=== PATIENT | male | born 1950 | race Caucasian/White ===

== ENCOUNTER 2016-11-22 04:01 | Inpatient (IN) | payer OTHER ==
[2016-11-22] VITALS (9 sets, daily range): BP systolic 118–148; BP diastolic 70–76
[~2016-11-22] VITALS: Ht 170.2 cm; Wt 82.6 kg
[~2016-11-22 04:01] MED LIST: AMLODIPINE BESYL5 M1 PO; CELEBREX200 M1 PO; CYCLOBENZAPRINE5 M2 PO; DORZOLAMIDE HCL10 M1 OPH; FENOFIBRATE145 M1 PO; GABAPENTIN300 M2 PO; LANTUS SOL100 UNIT/1 SC; LISINOPRIL-HCT1 EAC1 PO; LUMIGAN2.5 ML OPH; PRAVACHOL40 M1 PO; VICTOZA 2-0.6 MG/0.1 SC
--- NOTE | 2016-11-22 12:06 | Operative Report ---
Operative/Inv Procedure Report Surgery Date: 11/22/16 Name of Procedure: C6 C7 T1 laminectomy for excision of synovial cyst. C6-C7 T1 T2 T3 posterior lateral arthrodesis utilizing autologous bone graft and the [place] segmental titanium instrumentation. Pre-Operative Diagnosis: Cervical stenosis synovial cysts Post-Operative Diagnosis: Same Estimated Blood Loss: 250cc Surgeon/Automotive Product Specialist: MICHEAL MARI MD AND MIRIAN PACHECO MD Anesthesia: general endotracheal tube Operative/Procedure Note Note: The patient was brought to the operating room. After undergoing endotracheal intubation Monterroso catheterization Venodyne's were placed for both lower extremities. A triple pin Duckworth headrest was placed over the patient's head and the patient was then placed in the prone position on gel rolls arms and the side all bony prominences well-padded. The back of the neck was shaved washed with alcohol and Betadine and draped again with DuraPrep solution. X-ray was used for localization. An incision was made between the C5 and T3 vertebral bodies developed down through the underlying subcutaneous teeniest tissues the paraspinal muscles mobilized out laterally to the level of the lateral facet joints. After confirming with x-ray using a Ultromex's bone scalpel at the C6-C7 and T1 lamina were now removed by making 2 troughs on either side of the lamina and removed them with no undue downward pressure upon the spinal canal. The bone was removed morcellized and later used in the arthrodesis. At the O arm stereotaxis was now made but could not be accomplished due to the body habitus of the patient in the position. A lateral screws were now placed at C6 and C7 utilizing pascual titanium screws 45 superior 45 lateral trial followed by tapping and then 12 mm polyaxial screws. The T2 and T3 pedicles were accessed utilizing pascual titanium screws 4.0 diameter by 26 in length. The posterior surfaces were now decorticated and autologous bone graft was placed over the decorticated surfaces posterolaterally 2 rods were now obtained to the patient's cervical lordosis and secured to the polyaxial screws. Copious amounts of bacitracin irrigation were utilized vancomycin powder was placed in the wound a drain was now placed and removed through separate stab incision and secured to the skin. The paraspinal muscles and fascia were reapproximated utilizing interrupted 0 Vicryls inverted 2-0 Vicryl subcutaneous teeniest tissues and chino for the skin patient was taken x-rays the recovery room having tolerated procedure well.
--- NOTE | 2016-11-22 13:31 | Operative Report ---
Operative/Inv Procedure Report Surgery Date: 11/22/16 Name of Procedure: 1. Posterior C7-T2 laminectomy 2. Resection of right C7/T1 synovial cyst, right foraminotomy 3. Posterior segmental C6T3 spinal fusion with C6, 7 Ewen lateral mass screws and T2, 3 pedicle screw instrumentation, local autograft Pre-Operative Diagnosis: 1. Right C7-T1 synovial cyst with severe progressive right C8 radiculopathy 2. Multilevel cervical spondylosis, stenosis Post-Operative Diagnosis: Same Estimated Blood Loss: 250cc Surgeon/Display Manager: JUNIOR HAY,Ramez Maciel M.D. Anesthesia: general endotracheal tube Monitors: Neurophysiologic monitoring IV Fluids: 2.5 L crystalloid Implants: Ewen instrumentation Urine Output: 200 mL via Monterroso Drains: Small JALEN Specimens: Right C7-T1 epidural mass consistent with synovial cyst Complications: None Condition: Stable Operative Indication: Patient is a 66-year-old gentleman with a progressive right C8 radiculopathy. His imaging identifies a partially calcified right C7-T1 epidural mass situated in the lateral canal and proximal foramen with severe compression of the right C8 root as well as the lateral thecal sac and cord. At this finding is superimposed on multilevel cervical degenerative disc disease and spondylosis with multilevel central and foraminal narrowing. He has a progressive course of weakness in his right hand along with C8 distribution paresthesias confirmed with electrodiagnostic testing and now presents for operative decompression and posterior stabilization. Operative/Procedure Note Note: Patient brought to the operating room. After appropriate patient identification , neurophysiologic monitoring leads placed and baseline recordings obtained. Patient with a smooth induction of general endotracheal anesthesia without incident. He was given 2 g of IV Preoperative Prophylaxis. A Monterroso Catheter Was Sterilely Inserted. DVT Prophylaxis Utilized throughout the Case. With all tubes and lines secured, the patient was placed in Duckworth 3 point head fixation device and carefully turned to the prone position on gel rolls taking care to ensure that all pressure points were well-padded. The neck was positioned neutrally and fixed to the table. A lateral fluoroscopic x-ray was obtained and confirmed excellent a neutral positioning of the neck. The posterior neck was in widely prepped and draped usual sterile fashion using povidone iodine solution. A vertical midline skin incision was marked overlying the C6 to T2 3 segments and infiltrated with local anesthetic. Skin incision was made with a 10 blade knife dissection was carried down through the subcutaneous tissue with the Bovie. The fascia was incised and a subperiosteal dissection of the cervical paravertebral muscles performed bilaterally and self-retaining retractors were placed beneath the muscle. The presumed lamina from C6 to T3 were identified and cleared of overlying soft tissue along with the lateral masses. Intraoperative lateral x-rays were obtained and confirmed the correct levels. We then proceeded with a total laminectomy of C7-T1 and T2 using the misonix bone scalpel and Kerrison rongeurs and all bone was saved. Ligamentum flavum was stripped with Kerrisons and an excellent decompression of the dural sac and exiting root was accomplished. On the right at C7-T1, a large epidural mass was appreciated in the lateral canal and overlying the right C8 root. A portion of the mass was in the proximal neuroforamen. The lesion was carefully dissected from the lateral aspect of the dura and the C8 nerve root and gross totally resected and passed off as specimen. Intraoperative findings consistent with synovial cyst. We then proceeded with the arthrodesis. Reference arc was placed on the T3 spinous process and the O arm was attempted. However for technical reasons related to positioning and the Duckworth, adequate images could not be obtained and we aborted use of the O arm. The pedicles of T2 and T3 were exposed bilaterally. We proceeded with placement of lateral mass screws at C6 and C7. The bone was pierced with an AMA. The holes were drilled in a 30 lateral and rostral angle, sounded with a ball-tipped probe, tapped, resounded, and screws placed. At C5 and C6 3 0.5 x 12 mm Martita titanium screws were placed bilaterally. At T2 and T3, pedicle screws were placed under direct visualization bilaterally. Holes were drilled, sounded, and 4.0 x 26 mm Martita titanium screws were placed without incident. Neurophysiologic monitoring was stable throughout placement of instrumentation. The pedicles of T2 and T3 were further inspected with a [place] elevator and showed no evidence of cortical breakthrough. The dorsal aspects of the lateral masses and the facets from C6 to T3 were decorticated and all of the morcellated autograft was packed over the lateral masses and in the facet joints from C6 to T3 bilaterally. 80 mm rods were gently lordosis, top loaded into the screws, and locking caps placed. The screws were finally tightened with an antitorque device. The wound was copiously irrigated and we began closure. 1 g of vancomycin powder was placed into the wound over the soft tissue and exposed muscle surfaces. A small JALEN drain was placed into the wound and secured to the skin with a 2-0 nylon suture. Deep muscle was reapproximated with interrupted 0 Vicryl suture. The ligamentum nuchae was reapproximated interrupted 0 Vicryl suture. The subcutaneous tissue was closed in layers with interrupted 2-0 Vicryl suture and the skin was closed with chino. The wounds clean and dried. Bacitracin and a sterile occlusive dressing was placed. Operation was a placed in a hard cervical collar, carefully returned to the supine position removed from the Duckworth, awakened, extubated, and taken to PACU in stable condition. He was noted to be moving all 4 extremities at the completion of the case. All sponge, needle, and instrument were correct at the completion of the procedure 3. Neurophysiologic monitoring was stable throughout the case. Discharge Disposition: PACU
--- NOTE | 2016-11-22 14:00 | NUR ---
RECEIVED FROM PACU: A 66 YEAR OLD MALE S/P CERVIAL DECOMPRESSION C7-T2, LAMINECTOMY, EXCISION SYNOVIAL CYST. ASSISTED PATIENT OFF STRETCHER, CERVICAL [place] COLLAR ON. PATIENT VOIDED 25ML PINK TINGED URINE. ALERT AND ORIENTED X3. ASSISTED TO BED. REVIEWED POC. CALL GOMEZ IN REACH. ALPS AND TEDS ON. DRESSING TO POSTERIOR NECK INTACT. JALEN DRAIN INTACT DRAINING BLOODY DRAINAGE. POLICE DETENTION ATTENDANT DILAUDID REVIEWED WITH PATIENT. IVF AT 80 ML/HR. PATIENT REPORTING NUMBNESS/TINGLING TO RIGHT OUTER ASPECT OF HAND INTO 3RD AND 4TH FINGER. POSITIVE RADIAL AND PEDAL PULSES. STRENGTH EQUAL ALL EXTREMITIES. FINGERS/TOES WARM TO TOUCH. IST INSTRUCTED EVERY HOURS 10X REPS. URINAL AT BEDSIDE. SEE NURSING ASSESSMENT FLOWSHEETS FOR FURTHER DOCUMENTATION.
--- NOTE | 2016-11-22 14:06 | Admission Core Measures ---
Admission Meds I reviewed the following Meds: Current Medications Sig/Anila Start time Last Medication Dose Stop Time Status Admin Acetaminophen 650 MG Q4P PRN 11/22 1245 AC (Tylenol) Amlodipine Besylate 5 MG DAILY 11/23 1000 UNVr (Norvasc) Bisacodyl 10 MG DAILY NEEDED PRN 11/22 1245 AC (Dulcolax Supp) Cefazolin Sodium 2 GM IQ8 11/22 1600 AC (Kefzol) 11/25 0029 N/A 1 UNIT (No Carrier) Cefazolin Sodium 2,000 MG ONCE 11/22 0000 NR (Kefzol-Ancef Inj) 11/22 2359 Diazepam 5 MG Q8P PRN 11/22 1245 AC (Valium) Docusate Sodium 100 MG BID 11/22 2200 AC (Colace) Dorzolamide HCl 1 GTT BID 11/22 2200 UNVr (Trusopt 2% 10 ML) Famotidine 20 MG BID 11/22 2200 AC (Pepcid) Fenofibrate 145 MG DAILY 11/23 1000 UNVr (Tricor) Gabapentin 300 MG BID 11/22 2200 UNVr (Neurontin) Heparin Sodium 5,000 UNIT BID 11/23 1000 UNVr (Porcine) Hydrochlorothiazide 25 MG DAILY 11/23 1000 UNVr (Hydrodiuril) Hydromorphone HCl 50 MG Q24H PRN 11/22 1245 AC (Dilaudid) Sodium Chloride 45 ML (Normal Saline 50ML Bag) Hydromorphone HCl 2 MG Q4P PRN 11/22 1245 AC (Dilaudid) Insulin Human Regular 0 TIDAC/HS 11/22 1700 UNVr (NovoLIN R) Latanoprost 1 GTT AT BEDTIME 11/22 2200 UNVr (Xalatan) Lisinopril 20 MG DAILY 11/23 1000 UNVr (Prinivil) Ondansetron HCl 4 MG Q6P PRN 11/22 1245 AC (Zofran) Oxycodone/ 2 TAB Q4P PRN 11/22 1245 AC Acetaminophen (Percocet) Pravastatin Sodium 40 MG 1700 11/22 1700 UNVr (Pravachol) Sodium Chloride 1,000 ML Q12H 11/22 1245 AC (Normal Saline 0.9%) 11/23 1244 Trimethobenzamide HCl 200 MG Q6P PRN 11/22 1245 AC (Tigan) Zolpidem Tartrate 2.5 MG AT BEDTIME PRN 11/22 1245 AC (Ambien) Acute Coronary Syndrome Inclusion Criteria ACS Diagnosis No Inpatient Core Measures LDL Reminder: If No, please order W/I first 24hr of stay Congestive Heart Failure Inclusion Criteria CHF Diagnosis No Cerebrovascular accident Inclusion Criteria CVA/TIA Diagnosis No Inpatient Core Measures Bedside Swallow Eval Reminder: If BSE failed, place ST order Antithrombotic Reminder: Order Antithrombotic Medication by end of day 2 Antithrombotic Reminder: Document Reason Antithrombotic Not ordered by end of day 2 AFIB/Flutter Reminder: If Present, add to problem list AFIB/Flutter Reminder: Order Anticoag Medication for pts with AFIB/Flutter Atherosclerosis Reminder: If Present, add to problem list LDL Reminder: If No, please order W/I first 24hr of stay PT Order Reminder: If No, please order Venous thromboembolism Inpatient Core Measures VTE Risk Factors: Age > 40, Surgery No [facility] VTE prophylaxis d/t No contraindications No VTE Pharm Prophylaxis d/t No contraindications Inclusion Criteria - Per Current guidelines, there needs to be overlap - treatment for the first 5 days of Warfarin therapy. - Parenteral Anticoagulation (IV or SC) needs to be - given along with Warfarin therapy. VTE Diagnosis No VTE Type NONE VTE Confirmed by (Test) NONE Problem List As ranked by this Provider includes Assessment & Plan 1. Cervical radiculopathy at HOME MEDS Home Med List Amlodipine Besylate 5 MG TABLET 1 TAB PO DAILY HTN (Reported) Bimatoprost (Lumigan) 0.01 % DROPS 1 GTT OPH QPM GLAUCOMA (Reported) Celecoxib (Celebrex) 200 MG CAPSULE 1 CAP PO DAILY PAIN (Reported) Cyclobenzaprine HCl 5 MG TABLET 1 TAB PO TIDPRN SPASM (Reported) Dorzolamide HCl 2 % DROPS 1 GTT OPH BID GLAUCOMA (Reported) Fenofibrate Nanocrystallized (Fenofibrate) 145 MG TABLET 1 TAB PO DAILY TRIGLYCERIDES (Reported) Gabapentin 300 MG CAPSULE 1 CAP PO BID PAIN (Reported) Insulin Glargine,Hum.rec.anlog (Lantus Solostar) 100 UNIT/ML (3 ML) INSULN.PEN 34 UNITS SC NIGHTLY DM II (Reported) Liraglutide (Victoza 2-Dev) 0.6 MG/0.1 ML (18 MG/3 ML) PEN.INJCTR 1.2 SC NIGHTLY DM II (Reported) Lisinopril/Hydrochlorothiazide (Lisinopril-Hctz 20-25 MG Tab) 20 MG-25 MG TABLET 1 TAB PO DAILY HTN (Reported) Pravastatin Sodium (Pravachol) 40 MG TABLET 1 TAB PO DAILY CHOLESTEROL ( Reported)
--- NOTE | 2016-11-22 14:59 | RADIOLOGY REPORT ---
EXAMINATION: INTRAOPERATIVE FLUOROSCOPY AND SPOT FILMS. CR CERVICAL SPINE. CLINICAL INFORMATION: Cervical laminectomy C7-T1. COMPARISON: Cervical spine films dated 11/02/2016. TECHNIQUE: Fluoroscopic equipment was dedicated to the operating room for the performance of a cervical laminectomy at C7-T1. 5 fluoroscopic spot films were obtained. Frontal and lateral views of the cervical spine were then performed postoperatively. FLUOROSCOPY TIME: 0.1 minutes. FINDINGS: Bone detail is limited. Serial images demonstrate initially a posterior cervical spine marker seen projected in between the C6 and C7 posterior spinous processes . Final image demonstrates a posterior marker projected posteriorly at the C6-C7 level. The postprocedure films are extremely limited. On the lateral view, only the anterior margin of the mid thoracic vertebral bodies is included in the [id number] and are not adequately evaluated alignment of the visualized portions of the cervical spine appears anatomic. IMPRESSION: Intraoperative fluoroscopy and post procedure cervical spine films are significantly limited due to technique. Please refer to operative notes for detailed assessment. There appears to be localization of the C6-C7 level.
--- NOTE | 2016-11-22 15:28 | NUR ---
LEFT TEMPORAL AREA NOTED BLEEDING FROM HEAD STABLIZATOR IN OR. DSD APPLIED. TRINI SURGICAL DERRICK MAY AWARE. ALSO NOTIFIED TO DERRICK JALEN DRAIN OUTPUT OF 50 ML SINCE ARRIVAL TO UNIT.
--- NOTE | 2016-11-22 15:50 | PN- Student ---
SANDRA ORR 11/22/16 1548: Subjective Subjective: POC: Patient is sitting up in bed, awake and alert. Current pain is 6/10. Reports "tightness" in shoulders. Numbness in ulnar aspect of right hand and wrist, but improved from pre-op. Right upper extremity pain present prior to operation has resolved post-operatively. Has used dilaudid LIBRARY CLERICAL ASSISTANT once in PACU and states it helped with the pain, but doesn't want to use it too frequently. Stood from stretcher. Denies dizziness/SOB/headache/chest pain/nausea/vomiting. Voided minimal amount since sweet removal at 1pm. Has not passed gas or had a bowel movement yet. Is tolerating sips of water and ice chips, has not had solid food. Objective Objective: Vitals: Temp: 97.5 HR: 76 SpO2: 97 on RA BP: 148/76 I's & O's - recent arrival on floor, not recorded 25 cc voided (intraoperative sweet removed at 1pm in PACU) Glucose 150 General: awake, alert, oriented x3, NAD Neck: midline, posterior [place]-incisional tenderness, worse at base of skull. Dressings are intact minimal serosanguanous staining but not saturated JALEN drain in place with about 30cc sanguanous fluid - 65cc drained in PACU, 20cc drained on floor Lungs: CTAB, no wheeze/rales/rhonchi Heart: S1 S2 RRR, no M,R,G Abdomen: normoactive bowel sounds, soft, nontender Extremities: Upper - warm, radial pulses 2+ and equal bilaterally, nontender, decreased sensation in ulnar distribution of right hand and wrist, gross motor function in tact bilaterally, slightly weaker on right side. Lower - ALPS in place, warm, no erythema/edema, no calf tenderness bilaterally Assessment/Plan Assessment: This is a 66 y/o male s/p posterior cervical laminectomy of levels C6-T3 with fusion, PMH of htn, DM2 and glaucoma with post-op discomfort controlled with LIBRARY CLERICAL ASSISTANT , with resolved right upper extremity pain and improving right upper extremity neurological function post-operatively. Page [p pg ] Plan: Pain: continue dilaudid LIBRARY CLERICAL ASSISTANT Diet: advance to diabetic diet as tolerated, hep lock once tolerating 300cc PO per shift DVT ppx: ALPS. Per MD, heparin subq BID to start tomorrow pending low JALEN output and stable CBC Abx: ancef for perioperative infection prophylaxis x 23 hours Insulin coverage - check fingersticks TIDAC QHS PT: OOB, WBAT Sweet in place intraoperatively, removed at 1pm in PACU, due to void post-op AM labs Strict Is and Os, monitor JALEN output Will discuss with attending TRINI GAONA 11/22/16 1610: Assessment/Plan Plan: Patient seen and examined by myself. Above note reviewed with student, agree with above.
--- NOTE | 2016-11-22 17:48 | NUR ---
PT REPORTING CHEST PRESSURE. VITAL SIGNS: 130/70, P 95, T 98.3, RR 18, O2 SAT 95% ON RA. PAIN 7/10 ON DILAUDID ENAMEL DRIER PUMP. SURGICAL PA TRINI NOTIFIED. EKG & TROP TO BE ORDERED. NO FURTHER PAIN MEDS AT THIS TIME PER SURGICAL PA. SAFETY PRECAUTIONS MAINTAINED.
[2016-11-22 18:46] LABS: ABSOLUTE BASOPHIL COUNT 0 /CUMM (0.0-0.2); ABSOLUTE EOSINOPHIL COUNT 0.1 /CUMM (0.0-0.7); ABSOLUTE GRANULOCYTE CT 6.4 /CUMM (1.4-6.5); ABSOLUTE LYMPH COUNT 0.8 /CUMM (1.2-3.4); ABSOLUTE MONOCYTE COUNT 0.5 /CUMM (0.10-0.60); BASOPHIL % 0.3 % (0.0-2.0); EOSINOPHIL % 0.8 % (0-5); GRANULOCYTE % 82.2 % (42.2-75.2); HEMATOCRIT 29.5 % (42-52); MEAN CORPUSCULAR HGB 29.3 PG (27.0-31.0); MEAN CORPUSCULAR HGB CONC 34.4 G/DL (33.0-37.0); MEAN CORPUSCULAR VOLUME 85.1 FL (80.0-94.0); MEAN PLATELET VOLUME 9.6 FL (7.4-10.4); PLATELET COUNT 180 /CUMM (130-400); RBC DISTRIBUTION WIDTH 13.3 % (11.5-14.5); RED BLOOD CELL CT 3.47 /CUMM (4.70-6.10); WHITE BLOOD CELL COUNT 7.8 /CUMM (4.8-10.8)
--- NOTE | 2016-11-22 20:00 | NUR ---
SURGICAL PA AWARE OF PTS CONSISTENT PAIN LEVEL OF 8/10. NEW ORDER TO INCREASE DEMAND DOSE OF FURNITURE REMOVALIST DILAUDID TO 0.2MG. WILL REASSESS.
[2016-11-23] VITALS (11 sets, daily range): BP systolic 128–156; BP diastolic 70–76
--- NOTE | 2016-11-23 07:35 | PN- Neurosurgical ---
Subjective Subjective: Pt doing well. Incisional neck pain. Right arm pain improved. Objective Vital Signs and I&Os Vital Signs Date Time Temp Pulse Resp B/P B/P Pulse O2 O2 Flow FiO2 Mean Ox Delivery Rate 11/23 0653 90 11/23 0600 99.3 90 18 130/76 11/23 0530 99.3 104 18 134/76 98 Room Air 11/23 0400 99.3 86 18 130/74 11/23 0319 99.3 96 18 130/74 98 Room Air 11/23 0200 99.4 98 18 128/76 11/23 0133 99.4 98 18 128/76 98 Room Air 11/23 0000 99.0 100 18 130/70 11/22 2330 99.0 100 18 130/70 98 Room Air 11/22 2202 98.7 99 18 118/74 97 11/22 2200 98.7 99 18 118/74 11/22 2000 98.5 99 20 130/70 11/22 1957 Room Air 11/22 1951 98.5 99 20 130/70 96 11/22 1841 98.3 95 18 130/70 95 Room Air 11/22 1800 98.3 95 18 130/70 11/22 1600 98.3 91 18 126/70 11/22 1400 97.5 76 18 148/76 97 Room Air Intake & Output 11/23 0800 11/23 0000 11/22 1600 11/22 0800 11/22 0000 11/21 1600 Intake Total 940 1440 Output Total 910 1080 75 Balance 30 360 -75 Intake, IV 640 640 Intake, Oral 300 800 Number 0 Bowel Movements Output, 60 80 50 Drainage Output, Urine 850 1000 25 Patient 82.554 kg Weight Weight Reported by Patient Measurement Method Physical Exam: Pt AF, VSS incision is c,d, i and flat, JALEN in place with serosanguinous dc, 60cc over night motor improved R hand, still with C8 hypesthesia ambulating, using urinal without difficulty and pain reasonably controlled. Current Medications: Current Medications Sig/Anila Start time Last Medication Dose Route Stop Time Status Admin Acetaminophen 650 MG Q4P PRN 11/22 1245 AC PO Amlodipine Besylate 5 MG DAILY 11/23 1000 AC PO Bisacodyl 10 MG DAILY NEEDED PRN 11/22 1245 AC RI Cefazolin Sodium 2 GM IQ8 11/22 1600 AC 11/22 N/A 1 UNIT IV 11/25 0029 2350 Cefazolin Sodium 2,000 MG ONCE 11/22 0000 DC IV 11/22 2359 Diazepam 5 MG Q8P PRN 11/22 1245 AC PO Docusate Sodium 100 MG BID 11/22 2200 AC 11/22 PO 2052 Dorzolamide HCl 1 GTT BID 11/22 2200 AC 11/22 OPH 2053 Famotidine 20 MG BID 11/22 2200 AC 11/22 PO 2052 Fenofibrate 145 MG DAILY 11/23 1000 AC PO Gabapentin 300 MG BID 11/22 2200 AC 11/22 PO 2052 Heparin Sodium 5,000 UNIT BID 11/23 1000 AC (Porcine) SC Heparin Sodium 5,000 UNIT Q8 11/23 0600 DC (Porcine) SC Hydrochlorothiazide 25 MG DAILY 11/23 1000 AC PO Hydromorphone HCl 50 MG Q24H PRN 11/22 1245 AC 11/22 Sodium Chloride 45 ML IV 2000 Hydromorphone HCl 2 MG Q4P PRN 11/22 1245 DC PO Hydromorphone HCl 2 MG .STK-MED ONE 11/22 1232 DC IM 11/22 1233 Hydromorphone HCl 2 MG .STK-MED ONE 11/22 1214 DC IM 11/22 1215 Insulin Human Regular 0 TIDAC/HS 11/22 1700 AC 11/22 SC 1654 Ketorolac 15 MG Q6P PRN 11/22 1245 DC Tromethamine IV 11/25 1244 Latanoprost 1 GTT AT BEDTIME 11/22 2199 AC 11/22 OPH 2052 Lisinopril 20 MG DAILY 11/23 1000 AC PO Meperidine HCl 50 MG .STK-MED ONE 11/22 1248 DC IM 11/22 1249 Ondansetron HCl 4 MG Q6P PRN 11/22 1245 AC IV Oxycodone/ 2 TAB Q4P PRN 11/22 1245 DC Acetaminophen PO Pravastatin Sodium 40 MG 1700 11/22 1700 AC 11/22 PO 1558 Sodium Chloride 1,000 ML Q12H 11/22 1245 AC 11/22 IV 11/23 1244 2350 Trimethobenzamide HCl 200 MG Q6P PRN 11/22 1245 AC IM Zolpidem Tartrate 2.5 MG AT BEDTIME PRN 11/22 1245 AC PO Results Last 48 Hours of Labs: Laboratory Tests 11/22 1815 Chemistry Sodium (137 - 145 mmol/L) 134 L Potassium (3.5 - 5.1 mmol/L) 4.2 Chloride (98 - 107 mmol/L) 103 Carbon Dioxide (22 - 30 mmol/L) 21 L Anion Gap (5 - 16) 10 BUN (9 - 20 mg/dL) 20 Creatinine (0.7 - 1.2 mg/dL) 1.4 H Estimated GFR (>60 ml/min) 51 L BUN/Creatinine Ratio (7 - 25 %) 14.3 Phosphorus (2.5 - 4.5 mg/dL) 3.1 Magnesium (1.6 - 2.3 mg/dL) 1.3 L Troponin I (<0.11 ng/ml) < 0.01 Hematology CBC w Diff NO MAN DIFF REQ WBC (4.8 - 10.8 /CUMM) 7.8 RBC (4.70 - 6.10 /CUMM) 3.47 L Hgb (14.0 - 18.0 G/DL) 10.2 L Hct (42 - 52 %) 29.5 L MCV (80.0 - 94.0 FL) 85.1 MCH (27.0 - 31.0 PG) 29.3 RDW (11.5 - 14.5 %) 13.3 Plt Count (130 - 400 /CUMM) 180 MPV (7.4 - 10.4 FL) 9.6 Gran % (42.2 - 75.2 %) 82.2 H Lymphocytes % (20.5 - 51.1 %) 10.3 L Monocytes % (1.7 - 9.3 %) 6.4 Eosinophils % (0 - 5 %) 0.8 Basophils % (0.0 - 2.0 %) 0.3 Absolute Granulocytes (1.4 - 6.5 /CUMM) 6.4 Absolute Lymphocytes (1.2 - 3.4 /CUMM) 0.8 L Absolute Monocytes (0.10 - 0.60 /CUMM) 0.5 Absolute Eosinophils (0.0 - 0.7 /CUMM) 0.1 Absolute Basophils (0.0 - 0.2 /CUMM) 0 PUBS MCHC (33.0 - 37.0 G/DL) 34.4 Assessment/Plan Assessment/Plan Pt POD1 s/p C7-T2 lami for resection of synovial cyst and C6-T3 post cervical fusion and doing well. Plan: -OOB -cont JALEN until less than 20-25cc per shift -abx until drain out -all IV meds in plain saline without dextrose -IS use, DVT prophylaxis -dc AWNING HANGER HELPER - use percocet with iv dilaudid for breakthrough Core Measures/Miscellaneous Venous Thromboembolism VTE Risk Factors: Age > 40, Surgery VTE Contraindications: No Contraindications VTE Diagnosis: No VTE Type: NONE VTE Confirmed by (Test): NONE Beta Maurisio Is Beta Maurisio a Home Med? No Antibiotics Is Patient on Antibiotics? Yes Attending MD Review Statement Attending Statement Attending MD Statement: examined this patient, discuss w/resident/PA/LOGISTICS MANAGEMENT SPECIALIST, discussed w/nursing
--- NOTE | 2016-11-23 09:29 | Cons- Medical ---
General Information and HPI Consulting Request Date of Consult: 11/23/16 Requested By: JUNIOR HAY,MIRIAN Chery Reason for Consult: Medical comanagement Source of Information: patient, old records Exam Limitations: no limitations History of Present Illness: 66-year-old male with history of hypertension, dyslipidemia, diabetes, glaucoma, status post C-spine surgery day #1 without complications. He complains of significant pain at the site of the surgery and is currently on Dilaudid pump. Allergies/Medications Allergies: Coded Allergies: NO KNOWN ALLERGIES (UNKNOWN 11/19/16) Home Med List: Amlodipine Besylate 5 MG TABLET 1 TAB PO DAILY HTN (Reported) Bimatoprost (Lumigan) 0.01 % DROPS 1 GTT OPH QPM GLAUCOMA (Reported) Celecoxib (Celebrex) 200 MG CAPSULE 1 CAP PO DAILY PAIN (Reported) Cyclobenzaprine HCl 5 MG TABLET 1 TAB PO TIDPRN SPASM (Reported) Dorzolamide HCl 2 % DROPS 1 GTT OPH BID GLAUCOMA (Reported) BOTH EYES Fenofibrate Nanocrystallized (Fenofibrate) 145 MG TABLET 1 TAB PO DAILY TRIGLYCERIDES (Reported) Gabapentin 300 MG CAPSULE 1 CAP PO BID PAIN (Reported) 1 IN AM....2 IN PM Insulin Glargine,Hum.rec.anlog (Lantus Solostar) 100 UNIT/ML (3 ML) INSULN.PEN 34 UNITS SC NIGHTLY DM II (Reported) Liraglutide (Victoza 2-Dev) 0.6 MG/0.1 ML (18 MG/3 ML) PEN.INJCTR 1.2 SC NIGHTLY DM II (Reported) Lisinopril/Hydrochlorothiazide (Lisinopril-Hctz 20-25 MG Tab) 20 MG-25 MG TABLET 1 TAB PO DAILY HTN (Reported) Pravastatin Sodium (Pravachol) 40 MG TABLET 1 TAB PO DAILY CHOLESTEROL ( Reported) Current Medications: Current Medications Sig/Anila Start time Last Medication Dose Route Stop Time Status Admin Acetaminophen 650 MG Q4P PRN 11/22 1245 AC PO Amlodipine Besylate 5 MG DAILY 11/23 1000 AC 11/23 PO 0820 Bisacodyl 10 MG DAILY NEEDED PRN 11/22 1245 AC MO Cefazolin Sodium 2 GM IQ8 11/22 1600 AC 11/23 N/A 1 UNIT IV 11/25 0029 0814 Cefazolin Sodium 2,000 MG ONCE 11/22 0000 DC IV 11/22 2359 Diazepam 5 MG Q8P PRN 11/22 1245 AC PO Docusate Sodium 100 MG BID 11/22 2200 AC 11/23 PO 0819 Dorzolamide HCl 1 GTT BID 11/22 2200 AC 11/23 OPH 0814 Famotidine 20 MG BID 11/22 2200 AC 11/23 PO 0820 Fenofibrate 145 MG DAILY 11/23 1000 AC PO Gabapentin 300 MG BID 11/22 2200 AC 11/23 PO 0819 Heparin Sodium 5,000 UNIT BID 11/23 1000 AC 11/23 (Porcine) SC 0822 Heparin Sodium 5,000 UNIT Q8 11/23 0600 DC (Porcine) SC Hydrochlorothiazide 25 MG DAILY 11/23 1000 AC 11/23 PO 0819 Hydromorphone HCl 50 MG Q24H PRN 11/22 1245 AC 11/22 Sodium Chloride 45 ML IV 2000 Hydromorphone HCl 2 MG Q4P PRN 11/22 1245 DC PO Hydromorphone HCl 2 MG .STK-MED ONE 11/22 1232 DC IM 11/22 1233 Hydromorphone HCl 2 MG .STK-MED ONE 11/22 1214 DC IM 11/22 1215 Insulin Human Regular 0 TIDAC/HS 11/22 1700 AC 11/23 SC 0813 Ketorolac 15 MG Q6P PRN 11/22 1245 DC Tromethamine IV 11/25 1244 Latanoprost 1 GTT AT BEDTIME 11/22 220 AC 11/22 OPH 205 Lisinopril 20 MG DAILY 11/23 1000 AC 11/23 PO 0821 Meperidine HCl 50 MG .STK-MED ONE 11/22 1248 DC IM 11/22 1249 Ondansetron HCl 4 MG Q6P PRN 11/22 1245 AC IV Oxycodone/ 2 TAB Q4P PRN 11/22 1245 DC Acetaminophen PO Pravastatin Sodium 40 MG 1700 11/22 1700 AC 11/22 PO 1558 Sodium Chloride 1,000 ML Q12H 11/22 1245 AC 11/22 IV 11/23 1244 2350 Trimethobenzamide HCl 200 MG Q6P PRN 11/22 1245 AC IM Zolpidem Tartrate 2.5 MG AT BEDTIME PRN 11/22 1245 AC PO Review of Systems Review of Systems Constitutional: Denies: no symptoms, see HPI, chills, diaphoresis, fever, malaise, weakness, unexplained weight loss. Cardiovascular: Denies: no symptoms, see HPI, chest pain, edema, orthopena, palpitations, peripheral edema, syncope. Respiratory: Denies: no symptoms, see HPI, cough, hemoptysis, orthopnea, short of breath, sputum production, stridor, wheezing. GI: Denies: no symptoms, see HPI, abdominal pain, bloating, constipation, diarrhea, distention, bowel incontinence, melena, nausea, bloody stool, changes in stool, vomiting, steatorrhea. Musculoskeletal: Reports: neck pain. Skin: Denies: no symptoms, see HPI, cysts, change in skin color, change in hair/nails, dryness, erythema, jaundice, lesions, lymphangitis, lumps, moles, rash. Past History Medical History Blood Transfusion Hx: No Neurological: NONE EENT: cataracts, glaucoma Cardiovascular: hypertension, hyperlipidemia Respiratory: obstructive sleep apnea Gastrointestinal: NONE Hepatic: NONE Renal: NONE Musculoskeletal: osteoarthritis Psychiatric: NONE Endocrine: diabetes Blood Disorders: NONE Cancer(s): NONE COGNOS DEVELOPER/Reproductive: NONE Surgical History Surgical History: cataract removal, laminectomy Psychosocial History Where Do You Live? Home Services at Home: None Smoking Status: Former Smoker Exam & Diagnostic Data Last 24 Hrs of Vital Signs/I&O Vital Signs Date Time Temp Pulse Resp B/P B/P Pulse O2 O2 Flow FiO2 Mean Ox Delivery Rate 11/23 0821 90 130/76 11/23 0820 90 130/76 11/23 0653 90 11/23 0600 99.3 90 18 130/76 11/23 0530 99.3 104 18 134/76 98 Room Air 11/23 0400 99.3 86 18 130/74 11/23 0319 99.3 96 18 130/74 98 Room Air 11/23 0200 99.4 98 18 128/76 11/23 0133 99.4 98 18 128/76 98 Room Air 11/23 0000 99.0 100 18 130/70 11/22 2330 99.0 100 18 130/70 98 Room Air 11/22 2202 98.7 99 18 118/74 97 11/22 2200 98.7 99 18 118/74 11/22 2000 98.5 99 20 130/70 06/19 1957 Room Air 11/22 1950 98.5 99 20 130/70 96 11/22 1841 98.3 95 18 130/70 95 Room Air 11/22 1800 98.3 95 18 130/70 11/22 1600 98.3 91 18 126/70 11/22 1400 97.5 76 18 148/76 97 Room Air Intake & Output 11/23 1600 11/23 0800 11/23 0000 Intake Total 940 1440 Output Total 910 1080 Balance 30 360 Intake, IV 640 640 Intake, Oral 300 800 Number 0 Bowel Movements Output, 60 80 Drainage Output, Urine 850 1000 Physical Exam General Appearance: alert, awake, mild distress Neck: c spine hard collar in place Respiratory: normal breath sounds, lungs clear Cardiovascular: regular rate/rhythm Gastrointestinal: soft, non-tender Extremities: normal inspection Neurologic/Psych: no motor/sensory deficits, awake, alert, oriented x 3 Last 24 Hrs of Labs/Crispin: Laboratory Tests 11/22/161814: Anion Gap 10, Estimated GFR 51 L, BUN/Creatinine Ratio 14.3, Phosphorus 3.1, Magnesium 1.3 L, Troponin I < 0.01, CBC w Diff NO MAN DIFF REQ, RBC 3.47 L, MCV 85.1, MCH 29.3, RDW 13.3, MPV 9.6, Gran % 82.2 H, Lymphocytes % 10.3 L, Monocytes % 6.4, Eosinophils % 0.8, Basophils % 0.3, Absolute Granulocytes 6.4, Absolute Lymphocytes 0.8 L, Absolute Monocytes 0.5, Absolute Eosinophils 0.1, Absolute Basophils 0, PUBS MCHC 34.4 Assessment/Plan Assessment/Plan 66-year-old male with history of hypertension, dyslipidemia, diabetes, glaucoma, status post C-spine surgery day #1 without complications. He complains of significant pain at the site of the surgery and is currently on Dilaudid pump. Postoperative troponin negative. Noticed hypomagnesemia. Patient has baseline chronic kidney disease and his creatinine is about his baseline. Plan Replete magnesium Start patient on a strict constipation regimen Would start patient on 50% dose of home dose insulin if his by mouth intake is adequate May hold Victoza Consider discontinue IV fluids and encourage by mouth fluids Continue other home medications We will continue to monitor Problem List: 1. Cervical radiculopathy at C8 2. Diabetes mellitus 3. Benign hypertension Copies To: JUNIOR HAY,MIRIAN Ya. Consult Acknowledgment - Thank you for your consult request.
[2016-11-24 06:38] VITALS: BP 106/70
--- NOTE | 2016-11-24 08:35 | PN- Neurosurgical ---
Subjective Subjective: Pt with post incisional neck pain. otherwise no complaints. Objective Vital Signs and I&Os Vital Signs Date Time Temp Pulse Resp B/P B/P Pulse O2 O2 Flow FiO2 Mean Ox Delivery Rate 11/24 0638 98.2 90 20 106/70 96 Room Air 11/24 0024 93 11/23 2243 99.3 108 20 130/76 94 Room Air 11/23 1549 100.1 110 20 156/74 98 11/23 1000 98.8 88 18 136/70 Intake & Output 11/24 1600 11/24 0800 11/24 0000 11/23 1600 11/23 0800 11/23 0000 Intake Total 240 320 196 960 3688 Output Total 365 830 489 876 0531 Balance -125 -510 0 30 360 Intake, IV 80 160 640 640 Intake, Oral 240 240 720 300 800 Number 0 0 Bowel Movements Output, 15 80 60 80 Drainage Output, Urine 350 830 418 537 6714 Physical Exam: AF, VSS Tm100 BG 190-200 range JALEN with 15cc ON serosanguinous motor exam with signif improvement in right hand strength c/w preop, persistent R C8 hypesthesia, otherwise normal scar po, voiding on own, ambulating a bit on floor Incision is c,d,i Current Medications: Current Medications Sig/Anila Start time Last Medication Dose Route Stop Time Status Admin Acetaminophen 650 MG Q4P PRN 11/22 1245 AC PO Amlodipine Besylate 5 MG DAILY 11/23 1000 AC 11/23 PO 0820 Bisacodyl 10 MG DAILY NEEDED PRN 11/22 1245 AC ND Cefazolin Sodium 2 GM IQ8 11/22 1600 AC 11/24 N/A 1 UNIT IV 11/25 0029 0740 Diazepam 5 MG Q8P PRN 11/22 1245 AC 11/24 PO 0801 Docusate Sodium 100 MG BID 11/22 2199 AC 11/23 PO 2235 Dorzolamide HCl 1 GTT BID 11/22 2199 AC 11/23 OPH 2236 Famotidine 20 MG BID 11/22 2199 AC 11/23 PO 2235 Fenofibrate 145 MG DAILY 11/23 1000 AC 11/23 PO 1035 Gabapentin 300 MG BID 11/22 2200 AC 11/23 PO 2235 Heparin Sodium 5,000 UNIT BID 11/23 1000 AC 11/23 (Porcine) SC 2234 Hydrochlorothiazide 25 MG DAILY 11/23 1000 AC 11/23 PO 0819 Hydromorphone HCl 2 MG Q4P PRN 11/24 0815 AC PO Hydromorphone HCl 4 MG Q4P PRN 11/24 0815 AC PO Hydromorphone HCl 1 MG Q2-3 HRS NEEDED.. 11/23 0930 DC 11/24 IV 0351 Hydromorphone HCl 50 MG Q24H PRN 11/22 1245 DC 11/22 Sodium Chloride 45 ML IV 2000 Insulin Human Regular 2 UNITS .STK-MED ONE 11/23 2219 DC IV 11/23 2220 Insulin Human Regular 6 UNITS .STK-MED ONE 11/23 1641 DC IV 11/23 1642 Insulin Human Regular 4 UNITS .STK-MED ONE 11/23 1332 DC IV 11/23 1333 Insulin Human Regular 0 TIDAC/HS 11/22 1700 AC 11/24 SC 0740 Ketorolac 15 MG Q8H 11/24 1615 AC Tromethamine IV Ketorolac 30 MG ONCE ONE 11/24 0815 DC Tromethamine IV 11/24 0816 Latanoprost 1 GTT AT BEDTIME 11/22 2200 AC 11/23 OPH 2236 Lisinopril 20 MG DAILY 11/23 1000 AC 11/23 PO 0821 Magnesium Oxide 400 MG BID 11/23 1100 AC 11/23 PO 2235 Ondansetron HCl 4 MG Q6P PRN 11/22 1245 AC IV Oxycodone/ 1 TAB Q4P PRN 11/23 0930 DC Acetaminophen PO Oxycodone/ 2 TAB Q4P PRN 11/23 0930 DC 11/24 Acetaminophen PO 0122 Pravastatin Sodium 40 MG 1700 11/22 1700 AC 11/23 PO 1623 Sodium Chloride 1,000 ML Q12H 11/22 1245 DC 11/22 IV 11/23 1244 2350 Trimethobenzamide HCl 200 MG Q6P PRN 11/22 1245 AC IM Zolpidem Tartrate 2.5 MG AT BEDTIME PRN 11/22 1245 AC PO Results Last 48 Hours of Labs: Laboratory Tests 11/22 1814 Chemistry Sodium (137 - 145 mmol/L) 134 L Potassium (3.5 - 5.1 mmol/L) 4.2 Chloride (98 - 107 mmol/L) 103 Carbon Dioxide (22 - 30 mmol/L) 21 L Anion Gap (5 - 16) 10 BUN (9 - 20 mg/dL) 20 Creatinine (0.7 - 1.2 mg/dL) 1.4 H Estimated GFR (>60 ml/min) 51 L BUN/Creatinine Ratio (7 - 25 %) 14.3 Phosphorus (2.5 - 4.5 mg/dL) 3.1 Magnesium (1.6 - 2.3 mg/dL) 1.3 L Troponin I (<0.11 ng/ml) < 0.01 Hematology CBC w Diff NO MAN DIFF REQ WBC (4.8 - 10.8 /CUMM) 7.8 RBC (4.70 - 6.10 /CUMM) 3.47 L Hgb (14.0 - 18.0 G/DL) 10.2 L Hct (42 - 52 %) 29.5 L MCV (80.0 - 94.0 FL) 85.1 MCH (27.0 - 31.0 PG) 29.3 RDW (11.5 - 14.5 %) 13.3 Plt Count (130 - 400 /CUMM) 180 MPV (7.4 - 10.4 FL) 9.6 Gran % (42.2 - 75.2 %) 82.2 H Lymphocytes % (20.5 - 51.1 %) 10.3 L Monocytes % (1.7 - 9.3 %) 6.4 Eosinophils % (0 - 5 %) 0.8 Basophils % (0.0 - 2.0 %) 0.3 Absolute Granulocytes (1.4 - 6.5 /CUMM) 6.4 Absolute Lymphocytes (1.2 - 3.4 /CUMM) 0.8 L Absolute Monocytes (0.10 - 0.60 /CUMM) 0.5 Absolute Eosinophils (0.0 - 0.7 /CUMM) 0.1 Absolute Basophils (0.0 - 0.2 /CUMM) 0 PUBS MCHC (33.0 - 37.0 G/DL) 34.4 Assessment/Plan Assessment/Plan Pt POD2 s/p C6-T3 post fusion, resection of C7/T1 synovial cyst and neurologically improved. Plan: -oral dilaudid today prn -start toradol, dc ATC tylenol -OOB, use IS -monitor drain, dc if less than 20-25cc next shift -ABX until drain out -collar at all times Core Measures/Miscellaneous Venous Thromboembolism VTE Risk Factors: Age > 40, Surgery VTE Contraindications: No Contraindications VTE Diagnosis: No VTE Type: NONE VTE Confirmed by (Test): NONE Beta Maurisio Is Beta Maurisio a Home Med? No Antibiotics Is Patient on Antibiotics? Yes Attending MD Review Statement Attending Statement Attending MD Statement: examined this patient, discuss w/resident/PA/WILLOW MACHINE TENDER, discussed w/nursing
--- NOTE | 2016-11-24 09:05 | PN- Medicine Consult ---
Assessment/Plan Assessment/Plan Assessment: 66-year-old male with history of hypertension, dyslipidemia, diabetes, glaucoma, status post C-spine surgery day #2 without complications. He complains of rough night with significant pain. He also had a low-grade fever overnight that has resolved. However he is on high-dose cefazolin postoperatively and has a drain in place. Urine culture is negative. Blood sugars are well controlled. Plan: Plan Check daily labs Panc[place] if he has persistent fever Replete magnesium Maintain a strict constipation regimen Antibiotics per primary team Continue insulin sliding scale Continue other home medications We will continue to monitor Problem List: 1. Benign hypertension 2. Diabetes mellitus 3. Cervical radiculopathy at C8 Subjective Subjective: Patient had a fever last night and he complains of moderate pain. Review of Systems Constitutional: Denies: no symptoms, see HPI, chills, diaphoresis, fever, malaise, weakness, unexplained weight loss. Cardiovascular: Denies: no symptoms, see HPI, chest pain, edema, orthopena, palpitations, peripheral edema, syncope. Respiratory: Denies: no symptoms, see HPI, cough, hemoptysis, orthopnea, short of breath, sputum production, stridor, wheezing. Gastrointestinal: Denies: no symptoms, see HPI, abdominal pain, bloating, constipation, diarrhea, distention, bowel incontinence, melena, nausea, bloody stool, changes in stool, vomiting, steatorrhea. Musculoskeletal: Reports: neck pain. Skin: Denies: no symptoms, see HPI, cysts, change in skin color, change in hair/nails, dryness, erythema, jaundice, lesions, lymphangitis, lumps, moles, rash. Objective Last 24 Hrs of Vital Signs/I&O Vital Signs Date Time Temp Pulse Resp B/P B/P Pulse O2 O2 Flow FiO2 Mean Ox Delivery Rate 11/24 0900 90 106/70 11/24 0900 90 106/70 11/24 0638 98.2 90 20 106/70 96 Room Air 11/24 0024 93 11/23 2243 99.3 108 20 130/76 94 Room Air 11/23 1549 100.1 110 20 156/74 98 11/23 1000 98.8 88 18 136/70 Intake & Output 11/24 1600 11/24 0800 11/24 0000 Intake Total 240 320 Output Total 365 830 Balance -125 -510 Intake, IV 80 Intake, Oral 240 240 Output, 15 Drainage Output, Urine 350 830 Physical Exam General Appearance: alert, awake, mild distress Cardiovascular: regular rate/rhythm Respiratory: normal breath sounds, lungs clear Abdomen: normal bowel sounds, soft, non-tender Extremities: normal inspection, no edema Skin: intact Current Medications: Current Medications Sig/Anila Start time Last Medication Dose Route Stop Time Status Admin Acetaminophen 650 MG Q4P PRN 11/22 1245 AC PO Amlodipine Besylate 5 MG DAILY 11/23 1000 AC 11/24 PO 0900 Bisacodyl 10 MG DAILY NEEDED PRN 11/22 1245 AC GA Cefazolin Sodium 2 GM IQ8 11/22 1600 AC 11/24 N/A 1 UNIT IV 11/25 0029 0740 Diazepam 5 MG Q8P PRN 11/22 1245 AC 11/24 PO 0801 Docusate Sodium 100 MG BID 11/22 2200 AC 11/24 PO 0859 Dorzolamide HCl 1 GTT BID 11/22 2200 AC 11/24 OPH 0859 Famotidine 20 MG BID 11/22 2200 AC 11/24 PO 0900 Fenofibrate 145 MG DAILY 11/23 1000 AC 11/24 PO 0900 Gabapentin 300 MG BID 11/22 2200 AC 11/24 PO 0900 Heparin Sodium 5,000 UNIT BID 11/23 1000 AC 11/24 (Porcine) SC 0859 Hydrochlorothiazide 25 MG DAILY 11/23 1000 AC 11/24 PO 0900 Hydromorphone HCl 2 MG Q4P PRN 11/24 0815 AC PO Hydromorphone HCl 4 MG Q4P PRN 11/24 0815 AC PO Hydromorphone HCl 1 MG Q2-3 HRS NEEDED.. 11/23 0930 DC 11/24 IV 0351 Hydromorphone HCl 50 MG Q24H PRN 11/22 1245 DC 11/22 Sodium Chloride 45 ML IV 2000 Insulin Human Regular 2 UNITS .STK-MED ONE 11/23 2219 DC IV 11/23 2220 Insulin Human Regular 6 UNITS .STK-MED ONE 11/23 1641 DC IV 11/23 1642 Insulin Human Regular 4 UNITS .STK-MED ONE 11/23 1332 DC IV 11/23 1333 Insulin Human Regular 0 TIDAC/HS 11/22 1700 AC 11/24 SC 0740 Ketorolac 15 MG Q8H 11/24 1615 AC Tromethamine IV Ketorolac 30 MG ONCE ONE 11/24 0815 DC 11/24 Tromethamine IV 11/24 0816 0859 Latanoprost 1 GTT AT BEDTIME 11/22 2200 AC 11/23 OPH 2236 Lisinopril 20 MG DAILY 11/23 1000 AC 11/24 PO 0900 Magnesium Oxide 400 MG BID 11/23 1100 AC 11/24 PO 0900 Ondansetron HCl 4 MG Q6P PRN 11/22 1245 AC IV Oxycodone/ 1 TAB Q4P PRN 11/23 0930 DC Acetaminophen PO Oxycodone/ 2 TAB Q4P PRN 11/23 0930 DC 11/24 Acetaminophen PO 0122 Pravastatin Sodium 40 MG 1700 11/22 1700 AC 11/23 PO 1623 Sodium Chloride 1,000 ML Q12H 11/22 1245 DC 11/22 IV 11/23 1244 2350 Trimethobenzamide HCl 200 MG Q6P PRN 11/22 1245 AC IM Zolpidem Tartrate 2.5 MG AT BEDTIME PRN 11/22 1245 AC PO Results Last 24 Hrs Lab/Crispin Results: none
[2016-11-24 14:49] VITALS: BP 122/72
[2016-11-24 22:20] VITALS: BP 128/64
[2016-11-25 06:26] VITALS: BP 152/88
--- NOTE | 2016-11-25 08:29 | PN- Neurosurgical ---
Subjective Subjective: Pt with improved incisional neck pain with addition of toradol, intermittent GONZALES, otherwise doing well. Objective Vital Signs and I&Os Vital Signs Date Time Temp Pulse Resp B/P B/P Pulse O2 O2 Flow FiO2 Mean Ox Delivery Rate 11/25 0626 98.0 98 16 152/88 99 Room Air 11/24 2220 98.1 87 20 128/64 99 Room Air 11/24 1449 99.3 98 20 122/72 97 11/24 0900 90 106/70 11/24 0900 90 106/70 Intake & Output 11/25 1600 11/25 0800 11/25 0000 11/24 1600 11/24 0800 11/24 0000 Intake Total 370 480 240 320 Output Total 565 25 365 830 Balance -195 480 -25 -125 -510 Intake, IV 70 80 Intake, Oral 300 480 240 240 Number 0 Bowel Movements Output, 15 25 15 Drainage Output, Urine 550 350 830 Physical Exam: AF, VSS awake and alert incision is c,d,i flat JALEN with 15cc serosanguinous dc over night, 20 cc the prior shift neuro exam is stable, mild STS at left temporal cuevas pin site, better than yest ambulating on own, scar po well voiding on own Current Medications: Current Medications Sig/Anila Start time Last Medication Dose Route Stop Time Status Admin Acetaminophen 650 MG Q4P PRN 11/22 1245 AC PO Amlodipine Besylate 5 MG DAILY 11/23 1000 AC 11/24 PO 0900 Bisacodyl 10 MG DAILY NEEDED PRN 11/22 1245 AC ID Cefazolin Sodium 2 GM IQ8 11/22 1600 DC 11/25 N/A 1 UNIT IV 11/25 0029 0013 Diazepam 5 MG Q8P PRN 11/22 1245 AC 11/24 PO 2240 Docusate Sodium 100 MG BID 11/22 2200 AC 11/24 PO 2131 Dorzolamide HCl 1 GTT BID 11/22 220 AC 11/24 OPH 2131 Famotidine 20 MG BID 11/22 220 AC 11/24 PO 2131 Fenofibrate 145 MG DAILY 11/23 1000 AC 11/24 PO 0900 Gabapentin 300 MG BID 11/22 2200 AC 11/24 PO 2131 Heparin Sodium 5,000 UNIT BID 11/23 1000 AC 11/24 (Porcine) SC 2131 Hydrochlorothiazide 25 MG DAILY 06/20 1000 AC 11/24 PO 0900 Hydromorphone HCl 2 MG Q4P PRN 11/24 0815 AC 11/25 PO 0622 Hydromorphone HCl 4 MG Q4P PRN 11/24 0815 AC 11/24 PO 2021 Insulin Human Regular 4 UNITS .STK-MED ONE 11/24 2113 DC IV 11/24 211 Insulin Human Regular 8 UNITS .STK-MED ONE 11/24 1631 DC IV 11/24 1632 Insulin Human Regular 0 TIDAC/HS 11/22 1700 AC 11/24 SC 2130 Ketorolac 15 MG Q8H 11/24 1615 AC 11/25 Tromethamine IV 0013 Latanoprost 1 GTT AT BEDTIME 11/22 2200 AC 11/24 OPH 2132 Lisinopril 20 MG DAILY 11/23 1000 AC 11/24 PO 0900 Magnesium Oxide 400 MG BID 11/23 1100 AC 11/24 PO 2131 Ondansetron HCl 4 MG Q6P PRN 11/22 1245 AC IV Pravastatin Sodium 40 MG 1700 11/22 1700 AC 11/24 PO 1634 Trimethobenzamide HCl 200 MG Q6P PRN 11/22 1245 AC IM Zolpidem Tartrate 2.5 MG AT BEDTIME PRN 11/22 1245 AC PO Assessment/Plan Assessment/Plan Pt POD # 3 s/p post cervical lami, resection of synovial cyst and fusion C6-T3 and doing well. right hand strength improved c/w preop and severe burning right arm pain has resolved comletely by his report. Plan: -D/C JALEN, abx -two sets of additional pad inserts for collar- [place] orthotic -DC home later today -fu with me 2 weeks for wound check, [place] - pt to call for appt -Pt instructed to refrain from driving, lift more than 5 lbs, exercise -cover inicision occlusively for showers, collar at all times -call for fever > 101, wound drainage/erythema, new neurological sx, etc... Core Measures/Miscellaneous Venous Thromboembolism VTE Risk Factors: Age > 40, Surgery VTE Contraindications: No Contraindications VTE Diagnosis: No VTE Type: NONE VTE Confirmed by (Test): NONE Beta Maurisio Is Beta Maurisio a Home Med? No Antibiotics Is Patient on Antibiotics? Yes Attending MD Review Statement Attending Statement Attending MD Statement: examined this patient, discuss w/resident/PA/QUALITY CONTROL ASSESSOR, discussed w/nursing
--- NOTE | 2016-11-25 08:30 | PN- Student ---
SANDRA ORR 11/25/16 0807: Subjective Subjective: Patient is sitting up in bed, no complaints currently. Denies any pain, n/v, SOB , chest pain/palpatations. Has slight headache, and pain in neck if he "isn't careful" when he gets out of bed, but pain is well managed. Has not had a bowel movement but is passing gas and voiding. He is ambulating the floors frequently. Tolerating regular diet well. Objective Objective: Vital Signs Result Date Time Pulse Ox 99 11/25 625 B/P 152/88 11/25 625 O2 Delivery Room Air 11/25 625 Temp 98.0 11/25 625 Pulse 98 11/25 625 Resp 16 11/25 625 Intake & Output 11/25 0000 11/24 1600 11/24 0800 Intake Total 480 240 Output Total 25 365 Balance 480 -25 -125 Intake, Oral 480 240 Output, 25 15 Drainage Output, Urine 350 General: awake, alert, oriented, NAD Neck: supple, midline, minimal perincisional tenderness, no edema/erythema, JALEN drain in place with <5 cc serosanguanous fluid, dressing clean, dry and intact Lungs: CTAB, no wheeze/rhonchi/rales Heart: RRR, no M/R/G Abdomen: soft, non-distended, normoactive bowel sounds Extremities: no edema/erythema, Right upper extremity numbness in ulnar distribution of hand and wrist as well as slight decrease in muscle strength, nontender. Lower extremities warm, no edema/erythema, no calf tenderness bilaterally. ALPS in place. Assessment/Plan Assessment: This is a 66 y/o male POD # 3 posterior laminectomy with fusion of levels C7-T2 and Rgiht foramenotomy C4-5 with PMH significant for htn, glaucoma, DM2, hyperlipidemia. His right upper extremity pain has resolved post-op. Still has numbness and slight decrease in muscle strength on right side, but also has improved post operatively. Plan: D/C to home per Dr. Fregoso Diet: continue regular diet Pain: manage PRN with Dilaudid 2-4 mg PO Q 4-6 PRN and Valium 5mg 1-2 tab Q8 PRN Abx: D/C once JALEN drain is out JALEN Drain: D/C this am DVT ppx: ALPS, subq heparin, OOB and ambulate Follow up as outpatient with Dr. Fregoso 2 weeks from operation date Will discuss with attending MARLON LEVINE 11/25/16 0932: Assessment/Plan Assessment: Agree with Student assessment and plan, the only addition to discharge medications is two days of toradol po as recommended by Dr. Fregoso. He will be receiving 10 mg po bid for two days.
[2016-11-25] MEDS ORDERED: DILAUDID2 M1 PO (08:58)
[2016-11-25] MEDS ORDERED: VALIUM5 M2 PO (08:58)
--- NOTE | 2016-11-25 09:14 | Patient Discharge Instructions ---
Discharge Instructions General Discharge Information You were seen/treated for: Neck pain with radiation to right upper extremity You had these procedures: C6-T3 posterior laminectomy/fusion with right sided foraminotomy at c4-5 Watch for these problems: Increasing pain despite the use of pain medication. Increasing redness, warmth, or swelling at incision. Drainage of any type from incision. Inability to swallow. Worsening loss of sensation or weakness to arms and hands. Relentless nausea and vomitting. Fever greater than 101.5. Call Surgeon to remove: [place] Do not soak the wound: Yes No bath, but you may shower: Yes Other wound care: Keep wound clean and dry. Wear collar at all times. Be sure to protect wound when showering, if dressing becomes wet, be sure to change it after your shower. Special Instructions: You must wear your collar at all times. No exceptions until otherwise indicated by Dr. Fregoso. You will follow up with her in 2 weeks from date of surgery to have your chino removed. You will be taking pain medication which may be constipating. Be sure to take a stool softener or a laxative, or both, if you are having difficulty with bowel movements. If you are unable to no longer pass gas, or if you are unable to move your bowels for a period of time greater than a few days, please contact your doctor. Dr. Fregoso has recommended that you take Toradol which is a very strong anti- inflammatory. Please avoid taking any other anti-inflammatories such as celebrex, mobic, or ibuprofen while you are on this medication. If you have questions about the appropriateness or safety of any additional medications, please do not hesitate to call. Diet Continue normal diet: Yes Recommended Diet: Regular Activity Full Activity/No Limits: No Activity Self Limited: Yes Pounds, do NOT lift more than: 5 Additional ACTIVITY Info: Collar at all times Acute Coronary Syndrome Inclusion Criteria At DC or during hospital stay patient has or had the following: ACS DIAGNOSIS No Discharge Core Measures Meds if any: Prescribed or Continued at Discharge Meds if any: NOT Prescribed or Continued at Discharge Congestive Heart Failure Inclusion Criteria At DC or during hospital stay patient has or had the following: CHF DIAGNOSIS No Discharge Core Measures Meds if any: Prescribed or Continued at Discharge Meds if any: NOT Prescribed or Continued at Discharge Cerebrovascular accident Inclusion Criteria At DC or during hospital stay patient has or had the following: CVA/TIA Diagnosis No Discharge Core Measures Meds if any: Prescribed or Continued at Discharge Meds if any: NOT Prescribed or Continued at Discharge Venous thromboembolism Inclusion Criteria VTE Diagnosis No VTE Type NONE VTE Confirmed by (Test) NONE Discharge Core Measures - Per Current guidelines, there needs to be overlap - treatment for the first 5 days of Warfarin therapy. - If discharged on Warfarin prior to 5 days of - overlap therapy, the patient will need to be - assessed for post discharge needs including - *Post discharge parental anticoagulation - *Warfarin and/or parental anticoagulation education - *Follow up date to check INR post discharge At least 5 days overlap therapy as Inpatient No Meds if any: Prescribed or Continued at Discharge Note: Overlap Therapy is Warfarin and Anticoagulant Meds if any: NOT Prescribed or Continued at Discharge
--- NOTE | 2016-11-25 09:17 | PN- Medicine Consult ---
Assessment/Plan Assessment/Plan Assessment: 66-year-old male with history of hypertension, dyslipidemia, diabetes, glaucoma, status post C-spine surgery day #3 without complications. He reports overall improved pain. Antibiotics and drainage has been discontinued and plan for discharge home today. Plan: Plan Maintain a strict constipation regimen upon discharge Continue home insulin Will follow outpatient by next week Problem List: 1. Benign hypertension 2. Diabetes mellitus 3. Cervical radiculopathy at C8 Subjective Subjective: Patient has mild to moderate neck pain. Review of Systems Constitutional: Denies: no symptoms, see HPI, chills, diaphoresis, fever, malaise, weakness, unexplained weight loss. Cardiovascular: Denies: no symptoms, see HPI, chest pain, edema, orthopena, palpitations, peripheral edema, syncope. Respiratory: Denies: no symptoms, see HPI, cough, hemoptysis, orthopnea, short of breath, sputum production, stridor, wheezing. Gastrointestinal: Denies: no symptoms, see HPI, abdominal pain, bloating, constipation, diarrhea, distention, bowel incontinence, melena, nausea, bloody stool, changes in stool, vomiting, steatorrhea. Genitourinary: Denies: no symptoms, see HPI, discharge, dysuria, frequency, hematuria, hesitation, nocturia, pain, urgency. Musculoskeletal: Reports: neck pain. Skin: Denies: no symptoms, see HPI, cysts, change in skin color, change in hair/nails, dryness, erythema, jaundice, lesions, lymphangitis, lumps, moles, rash. Objective Last 24 Hrs of Vital Signs/I&O Vital Signs Date Time Temp Pulse Resp B/P B/P Pulse O2 O2 Flow FiO2 Mean Ox Delivery Rate 11/25 0835 98 152/88 11/25 0834 98 152/88 11/25 0626 98.0 98 16 152/88 99 Room Air 11/24 2220 98.1 87 20 128/64 99 Room Air 11/24 1449 99.3 98 20 122/72 97 Intake & Output 11/25 1600 11/25 0800 11/25 0000 Intake Total 370 480 Output Total 565 Balance -195 480 Intake, IV 70 Intake, Oral 300 480 Number 0 Bowel Movements Output, 15 Drainage Output, Urine 550 Physical Exam General Appearance: alert, awake, comfortable Cardiovascular: regular rate/rhythm Respiratory: normal breath sounds, lungs clear Abdomen: normal bowel sounds, soft, non-tender Extremities: no edema Other Physical Findings: hard collar Current Medications: Current Medications Sig/Anila Start time Last Medication Dose Route Stop Time Status Admin Acetaminophen 650 MG Q4P PRN 11/22 1245 AC PO Amlodipine Besylate 5 MG DAILY 11/23 1000 AC 11/25 PO 0834 Bisacodyl 10 MG DAILY NEEDED PRN 11/22 1245 AC ND Cefazolin Sodium 2 GM IQ8 11/22 1600 DC 11/25 N/A 1 UNIT IV 11/25 0029 0013 Diazepam 5 MG Q8P PRN 11/22 1245 AC 11/24 PO 2240 Docusate Sodium 100 MG BID 11/22 2200 AC 11/25 PO 0830 Dorzolamide HCl 1 GTT BID 11/22 2200 AC 11/25 OPH 0835 Famotidine 20 MG BID 11/22 2200 AC 11/25 PO 0829 Fenofibrate 145 MG DAILY 11/23 1000 AC 11/25 PO 0828 Gabapentin 300 MG BID 11/22 2200 AC 11/25 PO 0829 Heparin Sodium 5,000 UNIT BID 11/23 1000 AC 11/25 (Porcine) SC 0831 Hydrochlorothiazide 25 MG DAILY 11/23 1000 AC 11/25 PO 0830 Hydromorphone HCl 2 MG Q4P PRN 11/24 0815 AC 11/25 PO 0622 Hydromorphone HCl 4 MG Q4P PRN 11/24 0815 AC 11/24 PO 2021 Insulin Human Regular 4 UNITS .STK-MED ONE 11/24 2113 DC IV 11/24 2114 Insulin Human Regular 8 UNITS .STK-MED ONE 11/24 1631 DC IV 11/24 1632 Insulin Human Regular 0 TIDAC/HS 11/22 1700 AC 11/25 SC 0835 Ketorolac 15 MG Q8H 11/24 1615 AC 11/25 Tromethamine IV 0828 Latanoprost 1 GTT AT BEDTIME 11/22 2200 AC 11/24 OPH 2132 Lisinopril 20 MG DAILY 11/23 1000 AC 11/25 PO 0835 Magnesium Oxide 400 MG BID 11/23 1100 AC 11/24 PO 2131 Ondansetron HCl 4 MG Q6P PRN 11/22 1245 AC IV Pravastatin Sodium 40 MG 1700 11/22 1700 AC 11/24 PO 1634 Trimethobenzamide HCl 200 MG Q6P PRN 11/22 1245 AC IM Zolpidem Tartrate 2.5 MG AT BEDTIME PRN 11/22 1245 AC PO Results Last 24 Hrs Lab/[facility] Results: none
--- NOTE | 2016-11-25 09:28 | Surgical Discharge Summary ---
Visit Information Visit Dates Admission Date: 11/22/16 Discharge Date: 11/25/2016 History of Present Illness Chief Complaint: Neck pain with radiculopathy to upper extremities Medical History Blood Transfusion Hx: No Neurological: NONE EENT: cataracts, glaucoma Cardiovascular: hypertension, hyperlipidemia Respiratory: obstructive sleep apnea Gastrointestinal: NONE Hepatic: NONE Renal: NONE Musculoskeletal: osteoarthritis Psychiatric: NONE Endocrine: diabetes Blood Disorders: NONE Cancer(s): NONE HOUSE MANAGER/Reproductive: NONE History of MRSA: No History of VRE: No History of CDIFF: No Isolation History: Standard Influenza Vaccine: 04/10/11 Surgical History Pertinent Surgical History: cataract removal, laminectomy Psychosocial History Where Do You Live? Home Who Do You Live With? Patient/Self Services at Home: None What is Your Primary Language? Slovak Review of Systems: See H&P Hospital Course Course Attending Physician: MIRIAN PACHECO MD Primary Care Physician: ASHLEY HAY,[facility] Course: Ramez was admitted to the hospital on 11/22/2016 and underwent a posterior cervical laminectomy and fusion from c-6 to t-3 with a right sided formaminotomy at the level of c4-5. He tolerated the procedure well and was transferred to a general surgical floor. His drain output was monitored throughout the course of his hospitalization and remained inplace until his output was less than 20 cc a shift, he was on iv antibiotic prophylaxis while drain was in place. At the time of hospital discharge, his vital signs were stable and within normal limits , his pain was managed with po pain medication. His neurovascular status was intact. He was evaluated by Dr. Pacheco and deemed appropriate for discharge to home, she will follow up with him in 2 weeks from date of surgery. Allergies: Coded Allergies: NO KNOWN ALLERGIES (UNKNOWN 11/19/16) Disposition Summary Disposition Principal Diagnosis: 1. Right C7-T1 synovial cyst with severe progressive right C8 radiculopathy Additional Diagnosis: Multilevel cervical spondylosis, stenosis Discharge Disposition: home or self care Discharge Instructions General Discharge Information Code Status: Full Code Patient's Diet: Regular, advance as tolerated Patient's Activity: Collar at all times No lifting greater than 5 pounds Follow-Up Instructions/Appts: Follow up with Dr. Pacheco in 2 weeks from date of surgery. Medications at Discharge Discharge Medications: Stop taking the following medications: Celecoxib (Celebrex) 200 MG CAPSULE ORAL DAILY Cyclobenzaprine HCl (Cyclobenzaprine HCl) 5 MG TABLET ORAL THREE TIMES A DAY NEEDED Continue taking these medications: Fenofibrate Nanocrystallized (Fenofibrate) 145 MG TABLET 1 Tablet ORAL DAILY Pravastatin Sodium (Pravachol) 40 MG TABLET 1 Tablet ORAL DAILY Amlodipine Besylate (Amlodipine Besylate) 5 MG TABLET 1 Tablet ORAL DAILY Lisinopril/Hydrochlorothiazide (Lisinopril-Hctz 20-25 MG Tab) 20 MG-25 MG TABLET 1 Tablet ORAL DAILY Liraglutide (Victoza 2-Dev) 0.6 MG/0.1 ML (18 MG/3 ML) PEN.INJCTR 1.2 Inject into fatty tissue NIGHTLY Insulin Glargine,Hum.rec.anlog (Lantus Solostar) 100 UNIT/ML (3 ML) INSULN.PEN 34 Units Inject into fatty tissue NIGHTLY Dorzolamide HCl (Dorzolamide HCl) 2 % DROPS 1 Drop In the eye TWICE DAILY Instructions: BOTH EYES Bimatoprost (Lumigan) 0.01 % DROPS 1 Drop In the eye Every night Comments: BOTH EYES Gabapentin (Gabapentin) 300 MG CAPSULE 1 Capsule ORAL TWICE DAILY Instructions: 1 IN AM....2 IN PM Start taking the following new medications: Hydromorphone HCl (Dilaudid) 2 MG TABLET 1-2 Tablet ORAL EVERY 4-6 HOURS as needed for PAIN Qty = 36 No Refills Diazepam (Valium) 5 MG TABLET 1-2 Tablet ORAL EVERY 8 HOURS NEEDED as needed for SPASM Qty = 18 No Refills
[2016-11-25 10:00] VITALS: BP 142/84
== END 2016-11-25 14:03 | DRG 460 ==
LOC: SDA 04:01 → ENRESERV 12:09 → ENTRNSPT 13:25 → EDTRNSPTSTS 13:37 → CMPTRNSPT 13:41 → 2NA 13:48 → ENPENDDIS 11-25 09:43 → 2NA 11-25 14:03
PROVIDERS: Physician Assistant Surgical; ADMIT Neurological Surgery
PROC: 4A11X4G Monitoring of Peripheral Nervous Electrical Activity, Intraoperative, External Approach (ICD-10-PCS; principal; 2016-11-22)
PROC: 0RG7071 Fusion of 2 to 7 Thoracic Vertebral Joints with Autologous Tissue Substitute, Posterior Approach, Posterior Column, Open Approach (ICD-10-PCS; principal; 2016-11-22)
PROC: 0PB40ZZ Excision of Thoracic Vertebra, Open Approach (ICD-10-PCS; principal; 2016-11-22)
PROC: 0PB30ZZ Excision of Cervical Vertebra, Open Approach (ICD-10-PCS; principal; 2016-11-22)
PROC: 0RG1071 Fusion of Cervical Vertebral Joint with Autologous Tissue Substitute, Posterior Approach, Posterior Column, Open Approach (ICD-10-PCS; principal; 2016-11-22)
PROC: 0RG4071 Fusion of Cervicothoracic Vertebral Joint with Autologous Tissue Substitute, Posterior Approach, Posterior Column, Open Approach (ICD-10-PCS; principal; 2016-11-22)
DX: M47.22 Other spondylosis with radiculopathy, cervical region (principal); E11.22 Type 2 diabetes mellitus with diabetic chronic kidney disease; M48.02 Spinal stenosis, cervical region; E83.42 Hypomagnesemia; M71.38 Other bursal cyst, other site; G47.33 Obstructive sleep apnea (adult) (pediatric); I12.9 Hypertensive chronic kidney disease with stage 1 through stage 4 chronic kidney disease, or unspecified chronic kidney disease; N18.9 Chronic kidney disease, unspecified; H40.9 Unspecified glaucoma; E78.5 Hyperlipidemia, unspecified; Z79.4 Long term (current) use of insulin; Z87.891 Personal history of nicotine dependence
CPT/HCPCS: 2NAP; 72020; 72040; 82436; 87086; 93005; 93010; C1713; C9290; C9399; J0131; J0690; J1170; J1644; J1815; J1885; J2405; J3250; J3370